=== PATIENT | female | born 1995 | race African-American/Black ===

== ENCOUNTER → 2022-11-17 09:33 | Outpatient (CLI) | payer OTHER, SELFPAY ==
--- NOTE | ~2022-11-17 | US_ITS ---
Pelvic ultrasound. Clinical History: First trimester , uncertain dates Technique: Realtime transabdominal and transvaginal scanning of the pelvis was performed. Color flow Doppler and Doppler spectral analysis were performed. Findings: The uterus is anteverted, and contains an intrauterine gestation. [place]-rump length of 4.3 cm corresponds to an estimated gestational age of 11 weeks 1 day. heart rate is 165 bpm.. The right ovary is not visualized. No significant right ovarian or adnexal mass is seen. The left ovary measures 3.3 x 2.0 x 1.9 cm. No significant left ovarian or adnexal mass is seen. There is no evidence of free fluid in the cul de sac. Impression: Live intrauterine gestation with estimated gestational age of 11 weeks 1 day. heart rate is 165 bpm. Reviewed, dictated and finalized at [facility]. R MANAGEMENT SPECIALIST Impression: Live intrauterine gestation with estimated gestational age of 11 weeks 1 day. F etal heart rate is 165 bpm.
== END ==
PROVIDERS: PCP Obstetrics & Gynecology Gynecology; Visit Provider Obstetrics & Gynecology Gynecology
DX: Z36.87 Encounter for antenatal screening for uncertain dates (principal); Z3A.11 11 weeks gestation of pregnancy
CPT/HCPCS: 76801

== ENCOUNTER → 2023-01-19 15:59 | Outpatient (CLI) | payer OTHER, SELFPAY ==
--- NOTE | ~2023-01-19 | US_ITS ---
EXAMINATION: US OB /maternal detail DATE: 01/19/2023 16:43 INDICATION: Encounter for screening, unspecified. TECHNIQUE: Real-time ultrasound of the pelvis was performed. COMPARISON: Ultrasound 11/17/2022 FINDINGS: There is a single living fetus in vertex presentation. The placenta is posterior, 5.7 cm from the ce rvix. heart rate is 145 beats per minute (bpm). The cervical length is 2.9 cm on transabdominal images, which is normal. The amniotic fluid volume is subjectively normal. The following biometric data were obtained: Biparietal diameter (BPD): 4.6 cm; head circumference (HC): 17.2 cm; abdominal circumference (AC): 14 .9 cm; femur length (FL): 3.0 cm. These measurements are concordant. Estimated weight is 307 g +/- 46 g, which correlates with the 22nd percentile when 06/07/23 is u sed as estimated date of delivery. As single measurements, these parameters are each equal to the following estimated gestational ages: BPD: 20 weeks 0 days. HC: 19 weeks 6 days. AC: 20 weeks 1 days. FL: 19 weeks 1 days. estimated gestational age based solely on measurements from this exam is 19 weeks 6 days +/- 1 weeks 3 days. The cerebral ventricles and visualized portions of the spine are normal. The cerebellum, cisterna mag na, and nuchal fold are not well visualized. The heart is normal. The diaphragm, stomach, kidneys, an d bladder are normal. There are two umbilical arteries to yield a 3-vessel cord. The cord insertion i s normal. IMPRESSION: 1. Single living fetus in vertex presentation. 2. Estimated weight is 307 g +/- 46 g, which correlates with the 22nd percentile when 06/07/23 is used as estimated date of delivery. This date was set by ultrasound on 11/17/2022. 3. Posterior head not well evaluated. Otherwise normal anatomic survey. Reviewed, dictated and finalized at location A. IMPRESSION: 1. Single living fetus in vertex presentation. 2. Estimated weight is 307 g +/- 46 g, which correlates with the 22nd pe rcentile when 06/07/23 is used as estimated date of delivery. This date was set by ultrasound on 11/17/2022. 3. Posterior head not well evaluated. Otherwise normal anatomic [place].
== END ==
PROVIDERS: PCP Advanced Practice Midwife; Visit Provider Advanced Practice Midwife
DX: Z36.9 Encounter for antenatal screening, unspecified (principal); Z3A.19 19 weeks gestation of pregnancy
CPT/HCPCS: 76805

== ENCOUNTER → 2023-02-03 11:03 | Outpatient (CLI) | payer OTHER, SELFPAY ==
--- NOTE | ~2023-02-03 | US_ITS ---
EXAMINATION: US OB follow up DATE: 02/03/2023 11:46 INDICATION: Additional head views for prior incomplete anatomic survey TECHNIQUE: Real-time ultrasound of the pelvis was performed. The interpreting radiologist was not pre sent for the study. COMPARISON: None. FINDINGS: There is a single living fetus in breech presentation. The placenta is posterior. heart rate i s 147 beats per minute (bpm). The amniotic fluid volume is subjectively normal. The following biometric data were obtained: BPD: 5.3 cm -> 22 weeks 0 days Head circumference: 19.4 cm -> 21 weeks 4 days Abdominal circumference: 16.1 cm -> 21 weeks 1 days Femur length: 3.5 cm -> 21 weeks 1 days These measurements are concordant. Head circumference to abdominal circumference ratio: 1.20 (normal range 1.06-1.24). Estimated weight: 409 g (+/-) 61 g or 14 oz. (+/-) 2 oz. The ventricles, choroid plexus, falx, cava septum pellucidum, cerebellum, nuchal fold and upper lip n ormal. IMPRESSION: 1. Single living fetus in breech presentation with heart rate of 147 bpm. 2. The previously suboptimally visualized cranial/intracranial components of the anatomic surve y are normal. 3. Estimated weight is 22nd percentile by Hadlock criteria when 06/11/2023 is used as the estima zachariah date of delivery (SAMANTHA). Please correlate with clinical information or earlier ultrasounds for mos t accurate SAMATNHA. Reviewed, dictated and finalized at location A. IMPRESSION: 1. Single living fetus in breech presentation with heart rate of 147 bpm. 2. The previously suboptimally visualized cranial/intracranial components of th e anatomic survey are normal. 3. Estimated weight is 22nd percentile by Hadlock criteria when 06/11/2023 is used as the estimated date of delivery (SAMANTHA). Please correlate with clinica l information or earlier ultrasounds for most accurate SAMANTHA.
== END ==
PROVIDERS: PCP Obstetrics & Gynecology Gynecology; Visit Provider Obstetrics & Gynecology Gynecology
DX: O32.1XX0 Maternal care for breech presentation, not applicable or unspecified (principal); Z3A.00 Weeks of gestation of pregnancy not specified
CPT/HCPCS: 76816

== ENCOUNTER 2023-05-28 09:43 | Observation (INO) | payer OTHER, SELFPAY ==
[2023-05-28 10:15] VITALS: BP 133/93; PULSE 73
[2023-05-28] MEDS: LOPERAMIDE HCL 2 MG CAPSULE 4 MG PO (10:42)
[2023-05-28 11:00] LABS: Appearance Urine Clear (Clear); Bacteria Urine None Seen /hpf; Bilirubin Urine Negative (Negative); Blood Urine Negative (Negative); Color Urine Yellow (Yellow); Glucose Urine UA Negative (Negative); Ketones Urine Negative (Negative); Leukocyte Esterase Ur Trace LEU/UL (Negative); Need Manual Microscopic Reviewed; Nitrate Urine Negative (Negative); Non Pathogenic Casts 0-2; Protein Urine Negative (Negative); RBC Urine 0-2 /hpf (0-2); Specific Grav Ur 1.003 (1.001-1.035); Squamous Epithelial Cell Urine None seen /hpf (Few); Urobilinogen Urine 0.2 mg/dL (<2.0); WBC Urine 0-5 /hpf; pH Urine 6.5 (5.0-9.0)
[2023-05-28 11:01] LABS: Add Urine Microscopic? YES
[2023-05-28 12:06] VITALS: BMI 29.3
--- NOTE | 2023-05-28 13:36 | PC.NURSE ---
0943--Pt. to OB unit, verbalizes that she is having abdominal pain and has had it all weekend . She also reports diarrhea X3 days. She is not sure if the pain she is feeling is contractions or not, but states that the pain comes and goes.
--- NOTE | 2023-05-28 13:38 | PC.NURSE ---
1020--Report To Dr. Mcrae re: abdominal pain, diarrhea, fhr tracing, rare ctxns, and cervix is 1-2 cm/ 50%/ -3. Orders u/a, PO fluids if pt. can tolerate them, and imodium po.
--- NOTE | 2023-05-28 13:42 | PC.NURSE ---
1105--Pt. tolerated imodium and po hydration, urine neg. for ketones. Orders to DC home.
--- NOTE | 2023-06-04 09:43 | P.PNOB_ITS ---
OB - Triage/Final Diagnosis Visit Information Reason for evaluation: other ( abdominal pain) Comments/Additional reasons for admission: I have assessed the risk for this patient, Sonam Guevara, and determined that she would benefit from observation care. Evaluation Laboratory results: Laboratory Tests 05/28/23 10:26 Urine Color Yellow Urine Appearance Clear Urine pH 6.5 Ur Specific [place] 1.003 Urine Protein Negative Urine Glucose (UA) Negative Urine Ketones Negative Ur Blood (Man) Negative Urine Nitrate Negative Urine Bilirubin Negative Urine Urobilinogen 0.2 Add Ur Microanalysis Reviewed Leukocyte Esterase Rfl Trace H Urine RBC 0-2 Urine WBC 0-5 Ur Squamous Epith Cells None seen Urine Bacteria None seen Urine Casts 0-2
== END 2023-05-28 11:20 | disposition home or self-care (01) ==
PROVIDERS: Admitting Provider Obstetrics & Gynecology Gynecology; PCP Family Medicine; Visit Provider Obstetrics & Gynecology Gynecology
DX: O26.893 Other specified pregnancy related conditions, third trimester (principal); R10.9 Unspecified abdominal pain; Z3A.38 38 weeks gestation of pregnancy
CPT/HCPCS: 81001; A9270; G0378; G0379

== ENCOUNTER 2023-06-05 14:25 | Inpatient (IN) | payer OTHER, SELFPAY ==
[2023-06-05] VITALS (83 sets, daily range): BP systolic 121–175; BP diastolic 67–148; PULSE 77–129; TEMP 36.4–36.9; O2SAT 97–100
[2023-06-05 12:33] LABS: Basophils Percent Auto 0.4 % (0.2-1.2); Eosinophils Absolute Auto 0.1 K/mm3 (0-0.3); Eosinophils Percent Auto 0.7 % (0-4.4); Hemoglobin 10.5 g/dL (12.0-15.0); Immature Granulocyte Absolute 0.06 K/mm3 (0.00-0.031); Immature Granulocyte Percent A 0.7 % (0-0.5); Lymphocytes Absolute Auto 1.16 K/mm3 (0.9-3.2); Lymphocytes Percent Auto 12.9 % (18.3-44.2); Mean Corpuscular HGB Conc 32.8 g/dl (32-36); Mean Corpuscular Hemoglobin 30.8 pg (26-34); Mean Corpuscular Volume 93.8 fl (80-100); Mean Platelet Volume 9.6 fl (7.4-10.4); Monocytes Absolute Auto 0.9 K/mm3 (0.1-0.6); Monocytes Percent Auto 9.7 % (2.6-8.5); Neutrophils Absolute Auto 6.8 K/mm3 (1.3-6.7); Neutrophils Percent Auto 75.6 % (45.5-73.1); Platelet Count Result 269 k/mm3 (150-375); Red Blood Count 3.41 M/mm3 (4.2-5.4); Red Cell Distribution Width 14.5 % (11.5-14.5)
--- NOTE | 2023-06-05 12:36 | PC.NURSE ---
Pt. Sent from Clementina Macias office for PIH evaluation. Pt reports good movements; denies leaking/bleeding, pain, ctx, of health conditions.
[2023-06-05 12:44] LABS: Alanine Aminotransferase 24 U/L (6-35); Albumin Level 3.2 g/dL (3.5-5.1); Alkaline Phosphatase 154 U/L (38-126); Anion Gap 2 mmol/L (8-16); Aspartate Amino Transferase 30 U/L (14-36); Bilirubin,Total 0.3 mg/dL (0.2-1.3); Blood Urea Nitrogen 6 mg/dL (7-17); Calcium 8.3 mg/dL (8.4-10.2); Carbon Dioxide 23 mmol/L (22-30); Chloride 107 mmol/L (98-107); Estimated Glomerular Filt Rate > 60; Glucose 97 mg/dL (65-110); Potassium 3.4 mmol/L (3.4-5.0); Sodium 132 mmol/L (137-145); Uric Acid 6.1 mg/dL (2.5-7.5)
[2023-06-05 13:03] LABS: Appearance Urine Cloudy (Clear); Bacteria Urine Rare /hpf; Bilirubin Urine Negative (Negative); Blood Urine Negative (Negative); Color Urine Yellow (Yellow); Glucose Urine UA Negative (Negative); Ketones Urine Negative (Negative); Leukocyte Esterase Ur 2+ LEU/UL (NEGATIVE); Nitrate Urine Negative (Negative); Non Pathogenic Casts 0-2; Protein Urine Negative (Negative); RBC Urine 0-2 /hpf (0-2); Specific Grav Ur 1.003 (1.001-1.035); Squamous Epithelial Cell Urine Moderate /hpf (Few); Urobilinogen Urine 0.2 mg/dL (<2.0)
[2023-06-05 13:10] LABS: Add Urine Microscopic? YES
[2023-06-05 14:07] LABS: Creatinine Urine 21.3 mg/dL; Total Protein Urine Random 14 mg/dL; Ur Ttl Prot Creatinine Ratio 0.66 mg/mg (0-0.20)
--- NOTE | 2023-06-05 14:25 | LDADM ---
This patient, Sonam Guevara, was admitted to Labor/Delivery/Recovery 105 on 06/05/23 at 14:25. Plans for labor, pain management and were discussed with patient. Patient/family oriented to hospital policies and general routines including ID bracelet, bed and alarms, visiting hours, pain management, procedures, bathroom and other care routines, personal items, smoking policy, room service/diet and guest tray routines, security routines, and visiting hours. Patient/Family are encouraged to report perceived risks to care and to ask questions if they do not understand what they are told or what they should do. See OBIX for further documentation.
[2023-06-05] MEDS: LACTATED RINGERS 1,000 ML 125 ML IV CONT ×2 (15:52→21:19)
[2023-06-05] MEDS: AMPICILLIN 2 GM/NS 100 ML 2 GM/100 ML BAG IVPB (15:55)
--- NOTE | 2023-06-05 16:15 | PC.NURSE ---
Pitocin not started at pump due to deceleration
--- NOTE | 2023-06-05 18:12 | WPDANESEPP ---
Anes - Eval Pre Procedure Procedure: labor epidural Date/Time: 06/05/23 18:12 Surgeon: slick Preop Diagnosis: pain during labor Pre Op Diagnosis: pih evaluation Patient Data Age: 28 Gender: F Height: Weight: Last Vital Signs Temp 36.4 C 06/05/23 15:31 Pulse 87 06/05/23 18:02 BP 159/109 H 06/05/23 18:02 Allergies Allergy/AdvReac Type Severity Reaction Status Date / Time No Known Allergies Allergy Verified 06/05/23 17:48 Home Medications Medication Instructions Recorded Confirmed Type ferrous sulfate 325 mg (65 mg 325 mg PO DAILY 05/12/23 05/12/23 History iron) tablet prenat.vits,josh,yad-hees-yqytz 1 tablet 05/12/23 History Laboratory Tests 06/05/23 06/05/23 12:21 14:47 WBC 9.0 K/mm3 (4.5-10.0) RBC 3.41 L M/mm3 (4.2-5.4) Hgb 10.5 L g/dL (12.0-15.0) Hct 32.0 L % (37.0-47.0) MCV 93.8 fl (80-100) MCH 30.8 pg (26-34) MCHC 32.8 g/dl (32-36) RDW 14.5 % (11.5-14.5) Plt Count 269 k/mm3 (150-375) MPV 9.6 fl (7.4-10.4) Immature Gran % (Auto) 0.7 H % (0-0.5) Neut % (Auto) 75.6 H % (45.5-73.1) Lymph % (Auto) 12.9 L % (18.3-44.2) [place] % (Auto) 9.7 H % (2.6-8.5) Eos % (Auto) 0.7 % (0-4.4) Baso % (Auto) 0.4 % (0.2-1.2) Lymph # (Auto) 1.16 K/mm3 (0.9-3.2) [place] # (Auto) 0.9 H K/mm3 (0.1-0.6) Eos # (Auto) 0.1 K/mm3 (0-0.3) Baso # (Auto) 0.0 K/mm3 (0.0-0.1) Abs Immat Gran (auto) 0.06 H K/mm3 (0.00-0.031) Absolute Neuts (auto) 6.8 H K/mm3 (1.3-6.7) Absolute Nucleated RBC 0.0 K/mm3 (0.0-0.012) Nucleated RBC % 0.0 % (0.0-0.2) Sodium 132 L mmol/L (137-145) Potassium 3.4 mmol/L (3.4-5.0) Chloride 107 mmol/L (98-107) Carbon Dioxide 23 mmol/L (22-30) Anion Gap 2 L mmol/L (8-16) BUN 6 L mg/dL (7-17) Creatinine 1.10 H mg/dL (0.7-1.0) Estim Creat Clear Calc Not Reportable Estimated GFR > 60 (59 - ) Glucose 97 mg/dL (65-110) Uric Acid 6.1 mg/dL (2.5-7.5) Calcium 8.3 L mg/dL (8.4-10.2) Total Bilirubin 0.3 mg/dL (0.2-1.3) AST 30 U/L (14-36) ALT 24 U/L (6-35) Alkaline Phosphatase 154 H U/L (38-126) Total Protein 7.0 g/dL (6.3-8.2) Albumin 3.2 L g/dL (3.5-5.1) Urine Color Yellow (Yellow) Urine Appearance Cloudy H (Clear) Urine pH 7.0 (5.0-9.0) Ur Specific Avenue 1.003 (1.001-1.035) Urine Protein Negative mg/dL (Negative) Urine Glucose (UA) Negative mg/dL (Negative) Urine Ketones Negative mg/dL (Negative) Ur Blood (Man) Negative (Negative) Urine Nitrate Negative (Negative) Urine Bilirubin Negative (Negative) Urine Urobilinogen 0.2 mg/dL (<2.0) Ur Leukocyte Esterase 2+ H DELPHINE/UL (NEGATIVE) Urine RBC 0-2 /hpf (0-2) Urine WBC 6-10 /hpf (0-3) Ur Squamous Epith Cells Moderate /hpf (Few) Urine Bacteria Rare /hpf Urine Casts 0-2 U Random Total Protein 14 mg/dL Urine Creatinine 21.3 mg/dL Protein/Creat Ratio 2 0.66 H mg/mg (0-0.20) RPR Pending Blood Type O Positive Antibody Screen Negative Patient hx anesthesia problems: none Family hx anesthesia problems: none Results Review: All pre-operative results and documents have been reviewed as part of the pre-operative evaluation. PMFSH Past Medical History Medical History Acne Hyperlipidemia Surgical History Surgical History No history of previous surgery Family History Family History Mother Hypertension So
[2023-06-05] MEDS: OXYTOCIN 30 UNITS/NS 500 ML 30 UNITS/500 ML BAG 6 UNITS IV CONT (18:28)
[2023-06-05] MEDS: AMPICILLIN 1 GM/NS 50 ML 1 GM/50 ML BAG IVPB (20:09)
[2023-06-06] VITALS (159 sets, daily range): BP systolic 112–167; BP diastolic 71–108; PULSE 73–133; RESP 16; TEMP 36.4–37.7; O2SAT 95–100; BMI 29.7
[2023-06-06] MEDS: AMPICILLIN 1 GM/NS 50 ML 1 GM/50 ML BAG IVPB ×2 (01:21→04:59)
[2023-06-06] MEDS: LACTATED RINGERS 1,000 ML 125 ML IV CONT (04:34)
--- NOTE | 2023-06-06 07:29 | PM.OBPNLAB ---
Pain Control Date/time seen: 06/06/23 07:10 Pain control: tolerating well and epidural Comments: Feeling pubic pressure. SVE 10cm per RN. Was called overnight when pt was 9cm, BPs had been stable and FHT tracing had been reassuring per the RN. Contractions Monitor mode: External Contraction frequency: 2 Contraction pattern: Regular Contraction phase: Contraction Contraction intensity: Strong/Firm Status status: Category ll Comments: Baseline 135 with moderate variability, occasional variable decelerations. Assessment and Plan Assessment: active labor Comments: CNM to bedside. Discussed plan of care. Plan to begin pushing at this time.
--- NOTE | 2023-06-06 09:36 | PM.OBPRVD ---
OB - Delivery Note Procedure Delivery date: 06/06/23 Procedure: Events: Positive Group B Strep (GBS) and Preeclampsia w/o severe features Induction method: Per Pitocin Protocol Delivery augmentation: Pitocin Delivery monitor: External FHT and External Uterine Route of delivery: Episiotomy description: None Laceration Description: None Specimen: Yes Quantitative Blood Loss (ml): 100 Anesthesia type: Epidural Disposition: Floor Narrative: Patient arrived for induction of labor. Pitocin was started. There was spontaneous rupture of membranes with clear fluid. She progressed to complete dilation and pushed with contractions. She brought the head to a complete crown and delivered over an intact perineum. There was fair restitution, followed by easy delivery of anterior shoulder. The sheath the posterior shoulder slowly delivered, followed by the remainder of the . The was placed on the maternal abdomen in care is transferred to the nursery staff. After 1 minute of life the cord was doubly clamped and cut. Cord segment, cord blood, and cord gases were obtained. There was great uterine tone and excellent hemostasis. All delivery counts correct. Infant skin to skin in the delivery room. Baby Date of : 06/06/23 Time of : 09:22 Weeks of gestation at delivery: 39 gender: Male Weight (pounds): 0 (unavailable at the time of this note) presentation: vertex position: Left Occiput Posterior Placenta delivery description: Spontaneous Cord Vessel Description: 3 Vessels
--- NOTE | 2023-06-06 09:40 | PM.OBDSVD ---
DS: Admitting Diagnosis Discharge Date 06/08/2023 Admitting Diagnosis 28 y.o. at 39 weeks IOL Preeclampsia DS: Discharge Diagnosis Discharge Diagnosis (1) (normal spontaneous vaginal delivery): Code(s): O80 - Encounter for full-term uncomplicated delivery Status: Acute (2) Pre-eclampsia affecting childbirth: Code(s): O14.94 - Unspecified pre-eclampsia, complicating childbirth Status: Acute (3) Patient is a currently breast-feeding mother: Code(s): Z39.1 - Encounter for care and examination of lactating mother Status: Acute OB - DS: Summary Hospital Course Hospital Course: Uncomplicated OB Procedures : Ultrasound OB Procedures Intrapartum: Spontaneous Vag Delivery and GBS prophylaxis OB Procedures: : None Peripartum Data Infant Delivery Method: Natural Vaginal Laceration Description: None Episiotomy description: None complications: none Status at Discharge Functional status at discharge: independent ambulation Overall status at discharge: patient is progressing back to baseline Time Spent with Patient Time attestation: Total time spent providing and/or coordinating discharge services: Exam Narrative: Alert and oriented. Mood is pleasant and cooperative. Urinating without difficulty. Denies passing any large clots. Perineum with minimal edema. Fundus firm and below umbilicus. Const: General: cooperative, healthy appearing, no acute distress and alert Orientation/consciousness: patient oriented x3 Limitations: no limitations Resp: Effort & Inspection: normal respiratory effort Auscultation: clear to auscultation bilaterally Cardio: Rate: regular rate GI: Inspection: normal to inspection Neuro: General: patient oriented x3 Extrem: General: normal to inspection Psych: Appearance: grossly normal Mental Status: mental status grossly normal Affect: normal affect Thought process: Normal thought process present DS: Data Data Completed and Pending Labs on day of discharge: Labs from last 24 hours 06/05/23 06/05/23 14:47 12:21 WBC 9.0 RBC 3.41 L Hgb 10.5 L Hct 32.0 L MCV 93.8 MCH 30.8 MCHC 32.8 RDW 14.5 Plt Count 269 MPV 9.6 Immature Gran % (Auto) 0.7 H Neut % (Auto) 75.6 H Lymph % (Auto) 12.9 L [place] % (Auto) 9.7 H Eos % (Auto) 0.7 Baso % (Auto) 0.4 Lymph # (Auto) 1.16 [place] # (Auto) 0.9 H Eos # (Auto) 0.1 Baso # (Auto) 0.0 Abs Immat Gran (auto) 0.06 H Absolute Neuts (auto) 6.8 H Absolute Nucleated RBC 0.0 Nucleated RBC % 0.0 Sodium 132 L Potassium 3.4 Chloride 107 Carbon Dioxide 23 Anion Gap 2 L BUN 6 L Creatinine 1.10 H Estim Creat Clear Calc Not Reportable Estimated GFR > 60 Glucose 97 Uric Acid 6.1 Calcium 8.3 L Total Bilirubin 0.3 AST 30 ALT 24 Alkaline Phosphatase 154 H Total Protein 7.0 Albumin 3.2 L Urine Color Yellow Urine Appearance Cloudy H Urine pH 7.0 Ur Specific [place] 1.003 Urine Protein Negative Urine Glucose (UA) Negative Urine Ketones Negative Ur Blood (Man) Negative Urine Nitrate Negative Urine Bilirubin Negative Urine Urobilinogen 0.2 Ur Leukocyte Esterase 2+ H Urine RBC 0-2 Urine WBC 6-10 Ur Squamous Epith Cells Moderate Urine Bacteria Rare Urine Casts 0-2 U Random Total Protein 14 Urine Creatinine 21.3 Protein/Creat Ratio 2 0.66 H RPR Pending Blood Type O Positive Antibody Screen Negative Discharge Plan Discharge Attending physician on discharge: Tiffanie Mcrae Discharging Clinician: Jayshree Toribio Anticipated Discharge Date/Time: 06/08/23 09:41 Patient Disposition: Home, Self-Care Activity: may shower Diet: as tolerated and regular Wound Care Instructions: follow printed instructions Discharge Instructions: Take your BP twice daily. Call the office or post tronic machine operator provider immediately for any BPs greater than
[2023-06-06] MEDS: OXYTOCIN 30 UNITS/NS 500 ML 30 UNITS/500 ML BAG 125 UNITS IV CONT (09:57)
[2023-06-06] MEDS: ACETAMINOPHEN 325 MG TABLET 650 MG PO ×2 (11:42→19:31)
--- NOTE | 2023-06-06 11:57 | OBPPTRN ---
Patient transferred to post room # 284 via wheelchair accompanied by and support person. No barriers to learning identified at this time. PT introductions made and Oriented to unit, room, information board, rooming in, admission packet and security measures. PT received instructions per one to one discussion, mom baby care guide and demonstrations this shift. Patient verbalizes understanding.
[2023-06-06] MEDS: IBUPROFEN 600 MG TABLET PO (12:59)
[2023-06-06] MEDS: LANOLIN (LANSINOH) 7.5 GM CREAM 1 APPLIC TOPICAL (13:00)
[2023-06-06 13:53] LABS: Rapid Plasma Reagin Non-Reactive (NonReactive)
--- NOTE | 2023-06-06 17:25 | PC.NURSE ---
[id number] Introductions were made, then consulted with patient to assess needs related to . Mother led the conversation with her?plans to feed?her infant and the?experience so far. Resources provided for inpatient and outpatient services with the feeding sheet, mom/baby guide and name written on the white board. Mother verbalizes she is able to independently latch infant with appropriate positioning/alignment. She denies any nipple discomfort and is responsively . is currently meeting outcomes for weight, output, jaundice and feeding frequencies of 8-12 times in 24 hours. We discussed early feeding cues to watch for along with the visuals and sounds of effective suck swallowing. Mother declines any additional assistance/education at this time. Mother is encouraged to call for assistance if her doesn?t latch or there is discomfort with latching. Mother voiced understanding of information shared.
[2023-06-07] VITALS (7 sets, daily range): BP systolic 134–143; BP diastolic 86–109; PULSE 75–88; RESP 16–18; TEMP 36.4–37.2; O2SAT 100
[2023-06-07 05:47] LABS: Hematocrit 33.1 % (37.0-47.0); Hemoglobin 10.4 g/dL (12.0-15.0)
--- NOTE | 2023-06-07 07:53 | PM.OBPNVD ---
OB - PN: Subj Subjective Date/time seen: 06/07/23 07:53 Patient comments: no complaints, pain well controlled and other (no PIH Sx) [place] baby status: doing well OB - PN: Obj Data Labs 06/07/23 04:20 06/05/23 12:21 Labs: Laboratory Results - last 24 hr 06/05/23 06/07/23 14:47 04:20 Hgb 10.4 L Hct 33.1 L RPR Non-reactive OB - PN A/P Assessment and Plan (1) Pre-eclampsia affecting childbirth: Code(s): O14.94 - Unspecified pre-eclampsia, complicating childbirth Status: Acute Assessment and Plan: Bp improved this am. No sx. Good diuresis. Plan day: 1 Plan: routine care Time Spent With Patient Time: Total time spent is greater than 50% in coordination of care (as documented) at patient's floor/unit and/or counseling patient: Exam Narrative: BP improving this am : Bimanual exam- vagina & uterus: other (Uterus firm, nt @U)
[2023-06-07] MEDS: MULTIVIT/MIN/PREN/FOL AC/IRON TABLET 1 TAB PO (08:27)
[2023-06-07] MEDS: DOCUSATE SODIUM 100 MG CAPSULE PO ×2 (08:27→20:15)
--- NOTE | 2023-06-07 08:44 | WPDANLDPN2 ---
Anes-Prog Note L&D Date/Time: 06/07/23 08:44 Comfortable throughout: labor and delivery Neuraxial method: epidural Epidural/Spinal procedure site: clean & non-tender Neuro status: Neuro function grossly intact. Cardiovascular status: normal Respiratory status: normal Airway patency: baseline Mental status: baseline Post-Op hydration status: normal Vital Signs: Last Vital Signs Temp 97.7 F 06/07/23 04:30 Pulse 75 06/07/23 04:30 Resp 16 06/07/23 04:30 BP 137/99 H 06/07/23 04:30 Pulse Ox 100 06/07/23 04:30 O2 Del Method Room Air 06/07/23 00:15 Pain score (VAS): 0 I/O: Intake & Output 06/06/23 06/07/23 06/07/23 23:59 07:59 15:59 Intake Total 400 240 Output Total 2800 1000 Balance -2400 -760 Post-procedural complaints: none Patient feedback: Patient satisfied with anesthetic care.
[2023-06-07] MEDS: ACETAMINOPHEN 325 MG TABLET 650 MG PO ×2 (09:40→20:15)
--- NOTE | 2023-06-07 15:51 | PC.NURSE ---
0900 - Report received that mother is independently with no pain. [id number] Consulted with patient to assess needs related to . Mother led conversation with her experience with feeding baby so far. Mother works well with her with encouragement. Father is helpful and supporting mother and . Reviewed working with , supporting breast and how to protect the nipples with an optimal deep latch, good positioning, and good hand washing. Encouraged understanding the benefits of skin to skin, responding to feeding cues, frequencies of feeding 8-12 times in 24 hours (approximately 2-3 hours), duration of feedings, milk production and signs of adequate intake encouraging swallowing at the breast. Reviewed positioning and alignment, supporting breast, off-centered (asymmetrical latch) and leading with the chin with big, open, wide gape. Infant latched optimally to the right breast in football position. Education given to parents of how to visualize suck/swallow ratios and listen for drinking at the breast which infant is demonstrating. was able to maintain latch without discomfort to mother. Nipple care reviewed with optimal latch, good positioning and using clean hands when feeding her and touching her breast. Resources used to facilitate learning were used from the tool, mom and baby guide. Parents voiced understanding of the education shared, to call for assistance if the does not latch or if there is discomfort with . Reported to the primary RN.
[2023-06-08 00:15] VITALS: BP 126/83; PULSE 96
[2023-06-08 04:00] VITALS: BP 132/92; PULSE 101
[2023-06-08 07:50] VITALS: BP 135/101; PULSE 83; RESP 18; TEMP 37; O2SAT 98
--- NOTE | 2023-06-08 07:59 | PM.OBPNVD ---
OB - PN: Subj Subjective Date/time seen: 06/08/23 07:20 Interval history: PPD 2 from . Ambulating in room. Denies issues. Patient comments: pain well controlled [place] baby status: doing well and nursing well feeding status: exclusively breast feeding OB - PN: Obj Data Labs 06/07/23 04:20 06/05/23 12:21 OB - PN A/P Assessment and Plan (1) Patient is a currently breast-feeding mother: Code(s): Z39.1 - Encounter for care and examination of lactating mother Status: Acute (2) Pre-eclampsia affecting childbirth: Code(s): O14.94 - Unspecified pre-eclampsia, complicating childbirth Status: Acute (3) (normal spontaneous vaginal delivery): Code(s): O80 - Encounter for full-term uncomplicated delivery Status: Acute Plan day: 2 Plan: discharge home Time Spent With Patient Time: Total time spent is greater than 50% in coordination of care (as documented) at patient's floor/unit and/or counseling patient: Review of Systems Review of Systems: All systems reviewed & are unremarkable except as noted in HPI and below Exam Narrative: Alert and oriented. Mood is pleasant and cooperative. Urinating without difficulty. Denies passing any large clots. Perineum with minimal edema. Fundus firm and below umbilicus. Const: General: cooperative, healthy appearing, no acute distress and alert Orientation/consciousness: patient oriented x3 Limitations: no limitations Resp: Effort & Inspection: normal respiratory effort Auscultation: clear to auscultation bilaterally Cardio: Rate: regular rate GI: Inspection: normal to inspection Neuro: General: patient oriented x3 Extrem: General: normal to inspection Psych: Appearance: grossly normal Mental Status: mental status grossly normal Affect: normal affect Thought process: Normal thought process present
[2023-06-08] MEDS: ACETAMINOPHEN 325 MG TABLET 650 MG PO (08:21)
[2023-06-08] MEDS: MULTIVIT/MIN/PREN/FOL AC/IRON TABLET 1 TAB PO (08:21)
[2023-06-08] MEDS: DOCUSATE SODIUM 100 MG CAPSULE PO (08:21)
[2023-06-08] MEDS: IBUPROFEN 600 MG TABLET PO (11:40)
[2023-06-08 12:45] VITALS: BP 140/90; PULSE 72
--- NOTE | 2023-06-08 14:09 | PC.NURSE ---
Addendum entered by Dorys Vallejo RN 06/08/23 14:16: Mother was measured early for the proper flange size. Instructions given on cleaning, care, usage, that there should be no pain, pumping schedule for milk production, collection, and storage of human milk. Patient was instructed to pump for comfort and nipple stretching/stimulation for adequate milk production every 3 hours (8 times in 24 hours) 1-2 times at night when she starts pumping in 3-4 weeks. Information on use booklet is in the [employer] box, directed to [employer] and outpatient services if she has additional questions later regarding the pump. Original Note: [id number] Purposefully rounded to assess needs related to . Mother led conversation with her experience with feeding baby so far. Mother works well with her with encouragement. Reviewed working with infant, supporting breast and how to protect the nipples with an optimal deep latch, good positioning, and good hand washing. Encouraged understanding the benefits of skin to skin, responding to feeding cues, frequencies of feeding 8-12 times in 24 hours (approximately 2-3 hours), duration of feedings, milk production, intake/output feeding sheet and signs of adequate intake encouraging swallowing at the breast. Reviewed positioning and alignment, supporting breast, off-centered (asymmetrical latch) and leading with the chin with big, open, wide gape. Infant latched optimally to the left, then right breast in football position effectively on each breast. Education given to mother of how to visualize suck/swallow ratios, listen for drinking at the breast and using gentle massage/compression keeping infant actively and alert with drinking at the breast. Infant was able to maintain latch without discomfort to mother. Nipple care reviewed with optimal latch, good positioning and using clean hands when feeding her infant and touching her breast. Resources used to facilitate learning were used from the tool. Parents voiced understanding of the education shared, to call for assistance if the does not latch or if there is discomfort with . [id number] - Assisted mother with receiving a Zomee pump through [employer].
--- NOTE | 2023-06-08 14:39 | PC.NURSE ---
Patient viewed the discharge video Mother & Baby Care, The First Two Weeks online. Patient was given the opportunity and encouraged to ask questions. Patient verbalized understanding of information shared and has been given the mother/baby guide for home reference.
--- NOTE | 2023-06-08 18:30 | PC.NURSE ---
[id number] Patient given copy of discharge instructions and signed her discharge paperwork. Patient will be a NO CARE bed as her baby will not be discharged at this time.
[2023-06-09 11:26] VITALS: BP 145/97; PULSE 94; RESP 18; TEMP 36.9; O2SAT 100
== END 2023-06-08 18:30 | disposition home or self-care (01) | DRG 807 ==
LOC: ANHOBOP 14:37 → ANHLDR 14:37 → ANHOB2 06-06 12:10
PROVIDERS: Advanced Practice Midwife; Admitting Provider Obstetrics & Gynecology Gynecology; PCP Family Medicine; Visit Provider Obstetrics & Gynecology Gynecology
DX: O99.824 Streptococcus B carrier state complicating childbirth (principal); Z37.0 Single live birth; O14.04 Mild to moderate pre-eclampsia, complicating childbirth; Z3A.39 39 weeks gestation of pregnancy
CPT/HCPCS: 36415; 80053; 81001; 82570; 84156; 84550; 85014; 85018; 85025; 86592; 86850; 86900; 86901; 87086; 88307; A9270; J0290; J2590; J2795; J7120

== ENCOUNTER 2023-11-17 16:05 | Emergency (ER) | payer OTHER, SELFPAY ==
[2023-11-17 16:16] VITALS: BP 121/91; PULSE 91; RESP 16; TEMP 36.6; O2SAT 97
--- NOTE | 2023-11-17 16:17 | ED.EXTPRO ---
HPI - Extremity Problem General Chief complaint: Extremity Injury, Upper Stated complaint: R WRIST PAIN Time Seen by Provider: 11/17/23 16:22 Source: patient and RN notes reviewed Mode of arrival: ambulatory Limitations: no limitations History of Present Illness HPI Narrative: 28-year-old female presents concern for right wrist pain without injury. She reports she has been having pain for several months. She reports the pain is below her 1st and 2nd digits. She report pain is exacerbated with flexion or extension of the wrist, rotation of the wrist. She denies any intervention. 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 CARDIOVASCULAR: Denies chest pain, palpitations, or edema. RESPIRATORY: Denies cough or dyspnea. SKIN: Denies rash or itching, bruising, redness, swelling. MUSCULOSKELETAL: Reports NEUROLOGIC: Denies numbness, weakness All systems reviewed & are unremarkable except as noted in HPI and below PMFSH Past Medical History Medical History Acne Hyperlipidemia Surgical History Surgical History No history of previous surgery Family History Family History Mother Hypertension Social History Social History Social History: Single. No children. Lives with her mother in [place]. 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 There is no relevant family history pertinent to the presenting complaint Exam Narrative: GENERAL: Well-appearing, well-nourished, and in no acute distress. HEAD: Normocephalic, atraumatic. EYES: PERRLA, conjunctivae clear NECK: Supple. CHEST: Speaks in full sentences. No respiratory distress. HEART: Regular rate and rhythm. Normal and equal peripheral pulses. EXTREMITIES: Right wrist and digits have grossly normal strength and sensation, normal range of motion. No edema or ecchymosis. 5/5 strength with digit flexion and extension. Normal sensation with sensitivity to light touch and pain. No point tenderness. No open wounds, no skin tenting, no devitalized tissue or atrophy, no trophic changes, no obvious deformity, alignment normal, nearby joints and structures intact. Distal pulses palpable and equal bilaterally, skin warm, dry, pink. Capillary refill less than 3 seconds. SKIN: Warm, dry, no rash. NEURO: Alert and oriented x3. PSYCH: Normal mood and affect Course Course Emergency Course: Patient is aware of diagnosis, understands and agrees to treatment plan. Anticipatory guidance given. Patient agrees to follow-up as directed and is aware of reasons to seek care at the emergency department. Portions of this record may have been created with voice recognition software Level of Care: Express Care Visit Vital Signs Vital signs: Vital Signs Temperature 97.9 F 11/17/23 16:16 Pulse Rate 91 11/17/23 16:16 Respiratory Rate 16 01
== END 2023-11-17 16:37 | disposition home or self-care (01) ==
PROVIDERS: Emergency Provider Nurse Practitioner; PCP Family Medicine
DX: M77.8 Other enthesopathies, not elsewhere classified (principal); E78.5 Hyperlipidemia, unspecified
CPT/HCPCS: 99213; G0463

== ENCOUNTER 2025-07-23 17:43 | Emergency (ER) | payer OTHER, SELFPAY ==
--- NOTE | ~2025-07-23 | XR_ITS ---
EXAMINATION: XR foot LT min 3V DATE: 07/23/2025 19:02 INDICATION: Pain at the left great toe post recent injury TECHNIQUE: Dorsoplantar, oblique and lateral views of the left foot were obtained. COMPARISON: None. FINDINGS: Alignment is normal. No fracture. Joint spaces are normal. Bone island at the posterior tuberosity of the calcaneus. Soft tissues are unremarkable. IMPRESSION: 1. No acute osseous abnormality. Reviewed, dictated and finalized at location A.
[2025-07-23 17:48] VITALS: BP 129/80; PULSE 80; RESP 14; TEMP 36.9; O2SAT 100
--- NOTE | 2025-07-23 19:32 | ED_ITS ---
HPI - Extremity Injury (Lower) General Chief Complaint: Extremity Injury, Lower Stated Complaint: left foot sprain Time Seen by Provider: 07/23/25 19:26 Source: patient Mode of arrival: ambulatory Limitations: no limitations History of Present Illness HPI Narrative: Patient presents with pain of her left great toe. 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 This was at approximately 10:30 a.m. this morning. Upon arrival her pain was 6/10 in severity. She noted she was having paresthesias in this area. She denies any pain in the rest of her foot or ankle. She has not taken any medications prior to arrival. She a 1st does not know if she is up-to-date on her tetanus but then does state that this was updated when she was 2 years ago. Related Data Home Medications ?Medication ?Instructions ?Recorded ?Confirmed ?Last Taken ?Type levonorgestrel-ethinyl estradiol 1 tablet PO DAILY 11/07/24 Unknown History 0.1 mg-20 mcg tablet (Lessina) Allergies Allergy/AdvReac Type Severity Reaction Status Date / Time No Known Allergies Allergy Verified 07/23/25 17:44 [facility] Past Medical History Medical History Pre-eclampsia affecting childbirth Hyperlipidemia Acne Surgical History Surgical History (normal spontaneous vaginal delivery) (~05/2023) Family History Family History Mother Hypertension Social History Social History Social History: 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. 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 HEAD: Normocephalic, atraumatic. EYES: Non injected, non icteric ENT: Nares clear, no rhinorrhea or epistaxis. Gross auditory acuity intact. NECK: Supple. No meningismus. CHEST: Speaking in full sentences. No respiratory distress. HEART: Regular rate and rhythm. ABDOMEN: Soft, nondistended. EXTREMITIES: No lower extremity edema. No nail injury of left toe including no subungal hematoma. Patient is able to demonstrate 5/5 strength with left great toe dorsiflexion, plantar flexion her head, and eversion. SKIN: Warm, dry. Small 0.5cm skin tear on dorsal aspect of left great toe, no active bleeding. NEURO: No focal deficits. Alert and oriented. Answering questions. Following commands. Normal speech without aphasia or dysarthria. Sensation intact throughout toe. PSYCH: Normal mood and affect. Course Vital Signs Vital signs: Vital Signs Temperature 98.5 F 07/23/25 17:48 Pulse Rate 80 07/23/25 17:48 Respiratory Rate 14 07/23/25 17:48 Blood Pressure 129/80 07/23/25 17:48 Pulse Oximetry 100 07/23/25 17:48 Oxygen Delivery Room Air 07/23/25 17:48 Temperature 98.5 F 07/23/25 17:48 Pulse Rate 80 07/23/25 17:48 Respiratory Rate 14 07/23/25 17:48 Blood Pressure 129/80 07/23/25 17:48 Pulse Oximetry 100 07/23/25 17:48 Oxygen Delivery Room Air 07/23/25 17:48 MDM - Extremity Injury (Lower) MDM Narrative Medical decision making narrative: patient presents with left great toe pain after an object at work fell on it at 10:30. In the emergency department they are afebrile with vital signs within normal limits. Neurovascularly intact with reassuring physical exam. Tetanus was updated when 2 years ago, will defer repeating. No ankle/other foot pain. Imaging negative. Discussed R-I-C-E. Given pain medications in the ED (she drove herself so avoiding opiates ) and Rx for OTC meds. Advised follow up with PCP. Otherwise stable for discharge. Differential Diagnosis Differential diagnosis: Likely puncture wound of foot and fracture of toe Imaging Data Attestation: I personally reviewed and interpreted this imaging study as follows: My impression: No acute osseous abnormality on my independent interpretation of foot x-ray Radiologist's impression: Impressions Foot X-Ray 07/23/25 19:14 IMPRESSION: 1. No acute osseous abnormality. Discharge Plan Discharge Clinical Impression: Pain of left great toe Patient Disposition: Home Condition: Stable Instructions: Antibiotic Form, Foot Contusion (ED), P.R.I.C.E. Treatment (ED) Additional Instructions: Acetaminophen/Tylenol (maximum 4000 mg per day) is safe to take with NSAIDs (ibuprofen/Motrin) for pain relief. Remember R-I-C-E, rest ice compression elevation. Follow up with your primary care physician. Return to the emergency department with any new or worsening symptoms. Patient Language: Estonian Prescriptions: New ibuprofen 600 mg tablet 600 mg PO TID PRN (Reason: pain) Qty: 30 0RF acetaminophen 500 mg capsule 1,000 mg PO Q6H PRN (Reason: pain) Qty: 30 0RF No Action levonorgestrel-ethinyl estrad [Lessina] 0.1-20 mg-mcg tablet 1 tablet PO DAILY cholecalciferol (vitamin D3) 1,250 mcg (50,000 unit) tablet 1,250 mcg PO WEEKLY Qty: 12 1RF Follow-up/Referrals: Jorge Navarrete MD [Primary Care Provider, Family Practice] Stand Alone Forms: Work/School Release IP Time of Disposition: 20:07
--- OUTSIDE RECORDS SUMMARY | 2025-07-23 19:45 | XMS_ITS | Clinical Summary ---
Author Organization [address] Address [address] [place] [id number] Care Team Providers Care Windows Phone Developer Name Role Phone Unknown, Notinfile Primary Care Provider Unavail able Allergies No known active allergies Medications Vienva 0.1-20 mg-mcg per tablet Take 1 tablet by mouth daily 4 Active lidocaine viscous (XYLOCAINE) 2 % solutionIndicati ons:Acute pharyngitis, unspecified etiology Apply 5-10 mL to the mouth or throat 4 (four) times a day as needed (for sore throat) 100 mL 4 Active Additional Information Patient not taking.Reported on 03/15/2025 benzonatate (TESSALON) 100 mg capsuleIndicatio ns:Cough Take 1 capsule (100 mg total) by mouth 3 (three) times a day as needed for cough 42 capsule 4 Active Additional Information Patient not taking.Reported on 03/15/2025 cholecalciferol (VITAMIN D-3) 50,000 unit capsule Take 1 capsule (50,000 Units total) by mouth once a week 5 Active Active Problems No known active problems Encounters Date Type Department Care Team Description 07/20/2025 Orders Only [facility] Medicine Pediatric Genetics [facility] [address] [place] [address] [place] [address] Kiera Taveras MD from Last 3 Months Immunizations Immunization Administration Dates Next Due Influenza, Unspecified 11/07/2024 Social History Tobacco Use Types Packs/Day Years Used Date Smoking Tobacco: Never Assessed Comments Unknown Sex and Gender Information Value Date Recorded Sex Assigned at Not on file Legal Sex Female 12:16 PM CDT Gender Identity Female 06/27/2024 10:54 AM CDT Sexual Orientation Straight 06/27/2024 10 :54 AM CDT Obstetrics History Last Filed Vital Signs Vital Sign Reading Time Taken Comments Blood Pressure 109/77 03/15/2025 9:51 AM CDT Pulse 83 03/15/2025 9:51 AM CDT Temperature 37.2 C (98.9 F) 03/15/2025 9:51 AM CDT Respiratory Rate 21 03/15/2025 9:51 AM CDT Oxygen Saturation 100% 03/15/2025 9:51 AM CDT Inhaled Oxygen Concentration - - Weight 71.2 kg (157 lb) 03/15/2025 9:51 AM CDT Height 160.8 cm (5' 3.3) 03/15/2025 9:51 AM CDT Body Mass Index 27.55 03/15/2025 9:51 AM CDT Plan of Treatment Health Maintenance Due Date Last Done Comments Cervical Cancer Screening 1993 Depression Screening 1993 Hepatitis C Screening 1993 DTaP/Tdap/Td Vaccine (1 - Tdap) 2004 Varicella Vaccines (1 of 2 - 13+ 2-dose series) 2006 Hepatitis B Screening 2011 Regular Well Visit/Exam 18-64 2011 HPV Vaccines (1 - 3-dose SCD M series) 2020 Influenza Vaccine (#1) 2025 11/07/2024 Pneumococcal vaccine <65 Aged Out No longer eligible based on patient's age to complete this topic Procedures Procedure Name Priority Date/Time Associated Diagnosis Comments GENOMICS EXTERNAL REPORT Routine 07/20/2025 9:07 AM CDT from Last 3 Months Results * Genomics external report (07/20/2025 9:07 AM CDT) Kiera Taveras MD LAB GENETIC TESTING nal Result EXTERNAL LAB from Last 3 Months Insurance [facility] CHOICE PLUS [facility] CHOICE PLUS Care Teams Windows Phone Developer Relationship Specialty Start Date End Date Unknown, Notinfile PCP - General 03/15/24
[2025-07-23] MEDS: ACETAMINOPHEN 500 MG TABLET 1000 MG PO (20:17)
[2025-07-23] MEDS: KETOROLAC 30 MG/ML VIAL (*BKC) 15 MG IM (20:17)
== END 2025-07-23 20:23 | disposition home or self-care (01) ==
PROVIDERS: Emergency Provider Student in an Organized Health Care Education/Training Program; PCP Family Medicine
DX: S99.922A Unspecified injury of left foot, initial encounter (principal); E78.5 Hyperlipidemia, unspecified; Z79.3 Long term (current) use of hormonal contraceptives; W20.8XXA Other cause of strike by thrown, projected or falling object, initial encounter
CPT/HCPCS: 73630; 96372; 99283; A9270; J1885